=== PATIENT | male | born 1990 | race Caucasian/White ===

== ENCOUNTER 2018-01-19 16:58 | Emergency (ER) | payer SELFPAY ==
[~2018-01-19] VITALS: Ht 188 cm; Wt 80.0 kg
[2018-01-19 17:01] VITALS: BP 131/79
[2018-01-19] MEDS ORDERED: ACETAMINOPHEN 500 MG TABLET ONE (17:49)
[2018-01-19] MEDS ORDERED: ACETAMINOPHEN 500 MG TABLET PO ONE (18:00)
== END 2018-01-19 19:06 | disposition home or self-care (01) ==
LOC: ED 18:37
DX: S93.492A Sprain of other ligament of left ankle, initial encounter (principal); S90.32XA Contusion of left foot, initial encounter; F17.200 Nicotine dependence, unspecified, uncomplicated; V03.90XA Pedestrian on foot injured in collision with car, pick-up truck or van, unspecified whether traffic or nontraffic accident, initial encounter; Y93.89 Activity, other specified; Y99.8 Other external cause status; Y92.410 Unspecified street and highway as the place of occurrence of the external cause
CPT/HCPCS: 99284